=== PATIENT | male | born 1975 ===

== ENCOUNTER 2016-11-11 06:43 | Emergency (ER) | payer MEDICARE, MEDICAID ==
[~2016-11-11] VITALS: Ht 170.2 cm; Wt 68.2 kg
[~2016-11-11 06:43] MED LIST: DOXY100C2 PO; NOMED; OXYC1TAB24 PO; PRX40T PO
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
[2016-11-11 06:47] VITALS: BP 118/74; PULSE 84; RESP 18; O2SAT 100
[2016-11-11] MEDS ORDERED: oxyCODONE-Acetamin 10-325 mg Tablet PO ONE (06:50)
[2016-11-11] MEDS ORDERED: Ondansetron 2 mg/mL 2 mL Inj IVPUSH PRN (06:50)
[2016-11-11] MEDS ORDERED: 0.9% Sodium Chloride 1,000 ML IV ONE ×2 (06:50→07:20)
[2016-11-11 07:12] LABS: BASOPHILS % (AUTO) 0.2 % (0-3); EOSINOPHILS % (AUTO) 0.1 % (0-5); MONOCYTES % (AUTO) 7.6 % (4-12); Mean Corpuscular Hemoglobin 25.3 pg (27.0-35.0); Mean Corpuscular Volume 79.6 fL (81-100); NEUTROPHILS % (AUTO) 78.5 % (40-74); Platelet Count 459 bil/L (150-400)
[2016-11-11 07:29] VITALS: BP 108/82; PULSE 74; RESP 26; O2SAT 100
[2016-11-11 08:28] VITALS: BP 124/77; PULSE 75; RESP 20; O2SAT 100
[2016-11-11] MEDS ORDERED: IBUP800T28 PO (08:28)
[2016-11-11] MEDS ORDERED: CYCL10TA9 PO (08:28)
--- NOTE | 2016-11-11 08:29 | DRSVH ---
PROCEDURE: X-RAY LUMBAR SPINE, 2 OR 3 VIEW INDICATIONS: 41-year-old male with low back pain after trauma. TECHNIQUE: 3 views of the lumbar spine were acquired. COMPARISON: None. FINDINGS: Bones: 5 [id number] vertebrae are present. There is normal bony alignment. No vertebral body c ompression fractures. No suspicious bony lesions. Soft tissues: Overlying bowel gas pattern is normal. No suspicious soft tissue calcifications. IMPRESSION: No acute bony injuries of the lumbar spine. Dictated by: Rich Long M.D. on 11/11/2016 at 8:26 Approved by: Rich Long M.D. on 11/11/2016 at 8:26
[2016-11-11 09:53] VITALS: BP 124/77; PULSE 75; RESP 20; O2SAT 100
[2016-11-11 09:54] VITALS: BP 129/86; PULSE 94; RESP 23; O2SAT 100
[2016-11-11 09:58] LABS: APPEARANCE,URINE HAZY (CLEAR,HAZY); COLOR,URINE YELLOW (YELLOW); OCCULT BLOOD,URINE NEGATIVE (NEGATIVE); UROBILINOGEN,URINE NORMAL (NORMAL)
== END 2016-11-11 08:35 | disposition home or self-care (01) ==
LOC: SED 06:43
DX: M54.5 Low back pain (principal); W01.0XXA Fall on same level from slipping, tripping and stumbling without subsequent striking against object, initial encounter; Y93.89 Activity, other specified; Y92.89 Other specified places as the place of occurrence of the external cause; Y99.8 Other external cause status; R10.9 Unspecified abdominal pain; Z87.891 Personal history of nicotine dependence; Z91.010 Allergy to peanuts
CPT/HCPCS: 36415; 72100; 80053; 81000; 82550; 83690; 85025; 90791; 96361; 96374; 96375; 99285; J2405; J7030

== ENCOUNTER 2017-03-05 04:02 | Emergency (ER) | payer MEDICARE, MEDICAID ==
[~2017-03-05] VITALS: Ht 165.1 cm; Wt 64.0 kg
[~2017-03-05 04:02] MED LIST changes: +CYCL10TA9 PO; +IBUP800T28 PO
[2017-03-05 04:04] VITALS: BP 125/70; PULSE 71; RESP 18; O2SAT 100
--- NOTE | 2017-03-05 04:07 | ED.REPORT ---
HPI-Back Pain 40 and Over Date of Service Mar 05, 2017 ED Provider: Jakub Lebron MD Patient is a 41 year old male with a history of chronic back pain and methamphetamine abuse who presents to the ED via EMS complaining of severe low back pain after working on his boat today. The patient states that he simply worked too hard and "overdid it". He has been experiencing severe pain all night , his pain worsening with any movement. Patient denies any recent trauma or injury. The patient denies numbness or weakness in his extremities, bowel incontinence, bladder incontinence, saddle numbness, or any other pain. The patient takes Hydromorphone at home for chronic pain. Nursing Notes Stated Complaint: CHRONIC BACK PAIN/ ALCOHOL Chief Complaint: Back Pain or Injury Nursing Notes Reviewed: Yes Allergies: Coded Allergies: celecoxib (Unverified Allergy, Unknown, 03/05/17) peanut (Verified Allergy, Unknown, 03/05/17) Uncoded Allergies: FISH,PEANUTS (Allergy, Unknown, 06/25/04) Scheduled Doxycycline Hyclate (Doxycycline Hyclate) 100 Mg Capsule 100 MG PO BID Paroxetine-Expunged Drug, Do Not Renew! (Paxil-Expunged Drug, Do Not Renew!) 40 Mg Tablet 40 MG PO AM Scheduled PRN Cyclobenzaprine (Cyclobenzaprine) 10 Mg Tablet 10 MG PO TID PRN PRN Spasm Ibuprofen (Ibuprofen) 800 Mg Tablet 800 MG PO TID PRN PRN For Pain oxyCODONE-Acetaminophen 5-325 mg (oxyCODONE-Acetaminophen 5-325 mg) 1 Each Tablet 1-2 TAB PO Q4H PRN PRN For Pain Miscellaneous Medications No Historical Medication (No Historical Medication) Ea General Time Seen by MD: 04:06 Chief Complaint Back pain Hx Obtained From: Patient Arrived By: Ambulance Sudden in Onset?: No Onset Occurred: 1 - 4 hours ago Symptom Duration: Since onset Caused by: Spontaneous/no mechanism Location: : Generalized Quality: Painful Severity: Current: Severe Severity: Maximum: Severe Recent Healthcare: No recent doctor visit, No recent hospitalization Similar Sx Previous: Yes Past Medical History Past Medical History Anxiety Depression Chronic back pain Past Surgical History Denies Family History Noncontributory Smoking History Current Every Day Smoker Social History Alcohol Use: "Social" Drug Use: Meth, THC Other Social History: Local resident Occupation lives with Mom,no work or school Ambulatory Status Independent Review of Systems Male: Denies Incontinence Musculoskeletal: Reports: Back pain, Denies: Extremity pain Neurologic: Denies: Bladder dysfunction, Bowel dysfunction, Numbness, Weakness Complete sys rev & neg: except as marked. Physical Exam Initial Vital Signs Vital Signs (First) Date Time Temp Pulse Resp B/P Pulse Ox O2 Delivery O2 Flow Rate FiO2 03/05/17 04:04 36.3 71 18 125/70 100 Room Air Initial VS: Reviewed Head / Eyes: Atraumatic, Normocephalic, PERRL Neck: Supple Skin: Warm, Dry, No cyanosis Psychiatric: Mood/affect normal, Behavior normal General/Constitutional: Awake, Alert, No acute distress Rigid in bed Respiratory / Chest: No respiratory distress Cardiovascular: Heart rate NL Abdomen: Soft, Non-tender Back: Rigid in the bed, unable to cooperate with exam. States he is tender in the low back. Neurologic: Oriented X3, Speech NL, No motor deficits, No sensory deficits, CN II - XII intact Lower Extremity / Pelvis / MS: No swelling, No deformity, Neurologic intact, Vascular intact, No edema ENT: Airway patent Mouth: Positive: Mucous membranes dry Interpretation & Diagnostics Interpretation & Diagnostics: Urine tox dip: Positive for marijuana, methamphetamines, opiates, and amphetamines. Lab Results Interpretation Test 03/05/17 04:55 Urine Color Yellow (YELLOW) Urine Appearance Clear (CLEAR,HAZY) Urine pH 6.5 (5.0-8.0) Urine Specific [place] 1.020 (1.003-1.035) Urine Protein 30mg/dL (NEG,TRACE) Urine Glucose (UA) Negativemg/dL (NEGATIVE) Urine Ketones 15mg/dL (NEGATIVE) Urine Occult Blood Negative (NEGATIVE) Urine Nitrite Negative (NEGATIVE) Urine Bilirubin Negative (NEGATIVE) Urine Urobilinogen 1.0mg/dL (NORMAL) Urine Leukocyte Esterase Negative (NEGATIVE) Urine RBC 0-2/hpf (0-2) Urine WBC 0-5/hpf (0-5) Urine Epithelial Cells Occasional/hpf (NONE-MOD) Urine Crystals Amorphous urates (NONE Urine Bacteria Few/hpf (NONE-FEW) Urine Hyaline Casts Rare/lpf (NONE) Urine Granular Casts None seen (NONE SEEN) Urine Waxy Casts None seen (NONE SEEN) Urine Red Blood Cell Casts None seen (NONE SEEN) Urine White Blood Cell Casts None seen (NONE SEEN) Urine Mucus Present (None Seen) Urine Trichomonas None seen (NONE SEEN) Urine Yeast None (NONE SEEN) Urinalysis Comment None Urine Culture Reflexed Not indicated Re-Eval/Medical Decision Med Decision/Clinical Course 41-year-old chronic back pain on prescribe hydromorphone, also with current methamphetamine use. He presents with back pain without any specific injury, occurring tonight after a day of working on his boat earlier. No numbness tingling or other neuropathic symptoms no indication for imaging at this point. This appears to be muscular spasm. He is improved with Ativan and Toradol here. Signed out at [address] Boggs for disposition. Source of Hx: Old records Re-Evaluation/Progress : Time of Eval: 05:27 Patient Status: Condition improved Re-Evaluation/Progress Note: Rechecked the patient. He is now sleeping in the ED comfortably. Counseled Regarding: Diagnosis Discharge & Departure Shift Change Sign-Out Patient Care Transferred: Yes Discussed Complaint(s): Yes Impression: Primary Impression: Low back pain Chronicity: acute Back pain laterality: unspecified Sciatica presence: unspecified whether sciatica present Qualified Code: M54.5 - Low back pain Care Transferred to: Dr. Boggs Care Transferred at: 06:00 Rai Attestation Portions of this note were transcribed by Toña Montemayor. I, Dr. Lebron personally performed the history, physical exam and medical decision-making; I reviewed and confirmed the accuracy of the information in the transcribed note. Signed by: Rai Johnson, 03/05/2017 0556 Jakub Lebron MD Mar 05, 2017 04:06 Toña Montemayor Mar 05, 2017 04:11
[2017-03-05] MEDS ORDERED: Dexamethasone 20 mg/2 mL Oral Solution PO ONE (04:20)
[2017-03-05 05:14] LABS: APPEARANCE,URINE CLEAR (CLEAR,HAZY); COLOR,URINE YELLOW (YELLOW); OCCULT BLOOD,URINE NEGATIVE (NEGATIVE); PH,URINE 6.5 (5.0-8.0)
[2017-03-05] MEDS ORDERED: CYCL10TA9 PO (07:37)
[2017-03-05 09:23] VITALS: BP 140/68; PULSE 90; RESP 16; O2SAT 100
== END 2017-03-05 09:24 | disposition home or self-care (01) ==
LOC: SED 04:02
DX: M54.5 Low back pain (principal); F15.10 Other stimulant abuse, uncomplicated; X50.0XXA Overexertion from strenuous movement or load, initial encounter; Y93.89 Activity, other specified; Y92.89 Other specified places as the place of occurrence of the external cause; Y99.8 Other external cause status; F17.200 Nicotine dependence, unspecified, uncomplicated; Z88.6 Allergy status to analgesic agent; Z91.010 Allergy to peanuts
CPT/HCPCS: 81000; 81002; 96372; 99284; J1885; J2060

== ENCOUNTER 2017-03-25 21:05 | Emergency (ER) | payer MEDICARE, MEDICAID ==
[~2017-03-25] VITALS: Ht 162.6 cm; Wt 60.0 kg
[2017-03-25 21:16] VITALS: BP 135/81; PULSE 121; RESP 20; O2SAT 97
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
[2017-03-25] MEDS ORDERED: HYDROmorphone 1 mg/mL Inj IM ONE (22:50)
[2017-03-26 00:12] VITALS: BP 142/94; PULSE 122; RESP 18; O2SAT 98
== END 2017-03-26 00:12 | disposition home or self-care (01) ==
LOC: SED 21:05
DX: G89.18 Other acute postprocedural pain (principal); M54.9 Dorsalgia, unspecified; W18.39XA Other fall on same level, initial encounter; Y92.009 Unspecified place in unspecified non-institutional (private) residence as the place of occurrence of the external cause; Y93.9 Activity, unspecified; Y99.9 Unspecified external cause status; F11.20 Opioid dependence, uncomplicated; F15.10 Other stimulant abuse, uncomplicated; F32.9 Major depressive disorder, single episode, unspecified; F17.200 Nicotine dependence, unspecified, uncomplicated; Z98.890 Other specified postprocedural states; Z88.8 Allergy status to other drugs, medicaments and biological substances; Z91.010 Allergy to peanuts
CPT/HCPCS: 81002; 96372; 99284; J1170